=== PATIENT | male | born 1940 | race Caucasian/White ===

== ENCOUNTER 2017-09-10 19:09 | Inpatient (IN) | payer OTHER, MEDICARE ==
[~2017-09-10] VITALS: Ht 177.8 cm; Wt 68.9 kg
--- NOTE | ~2017-09-10 | EKG ---
[address] [place] [address] ELECTROCARDIOGRAM REPORT Name: CHANCE WRIGHT Room #: 461-P ADM IN M.R.#: [id number] Admission: 09/10/17 Attend Phys: Gina Ruiz Discharge: Date of : 42 Report #: [id number] THIS REPORT FOR: //name// [facility] ED Test Date: 2017-09-10 Test Time: 19:21:46 Pat Name: CHANCE WRIGHT Department: Room: Gender: M Supervisor Wet Pour: DONI : 1940 Requested By: Melissa Portillo Order Number: [id number] MD: Leonel Jackson Measurements Intervals [place] Rate: 68 P: 72 AR: 179 QRS: 11 QRSD: 86 T: 52 QT: 380 QTc: 405 Interpretive Statements Sinus rhythm RSR' in V1 or V2, right VCD or RVH Borderline ST elevation, anterior leads No previous ECG available for comparison Electronically Signed On 09-11-2017 14:30:18 CDT by Leonel Jackson [email or web address] <ELECTRONICALLY SIGNED> By: Leonel Jackson MD 09/11/17 1430 20 20 Leonel Jackson MD /SHERRIE
[2017-09-10 19:12] VITALS: BP 139/78
[2017-09-10 19:38] LABS: ABSOLUTE NEUTROPHILS 3.9 thou/uL (1.4-8.2); HEMATOCRIT 40.1 % (42.0-52.0); HEMOGLOBIN 13.6 gm/dL (14.0-18.0); LYMPHOCYTES 32.3 % (24.0-44.0); MCH 31.7 pg (26.0-34.0); MCHC 33.9 g/dL (28.0-37.0); MCV 93.3 fL (80.0-100.0); MONOCYTES 10.4 % (1.0-8.0); PLATELET COUNT 187 thou/uL (150-400); POLYS 55.3 % (36.0-66.0); WBC 7.1 thou/uL (4.0-11.0)
[2017-09-10 19:42] LABS: ANION GAP 10 mmol/L (7-16); BUN 19 mg/dL (7-18); CALCIUM 9.3 mg/dL (8.5-10.1); CHLORIDE 105 mmol/L (98-107); CO2 23 mmol/L (21-32); CREATININE 1.3 mg/dL (0.7-1.3); GLUCOSE 124 mg/dL (74-106); POTASSIUM 3.2 mmol/L (3.5-5.1); SODIUM 138 mmol/L (136-145)
[2017-09-10 19:51] LABS: ALBUMIN 3.6 g/dL (3.4-5.0); MAGNESIUM 1.8 mg/dL (1.8-2.4); SGOT 19 U/L (15-37); SGPT 22 U/L (30-65); TOTAL BILIRUBIN 0.6 mg/dL (<0.1-1.0); TOTAL PROTEIN 6.7 g/dL (6.4-8.2); TROPONIN-I < 0.04 ng/mL (<0.06)
[2017-09-10 20:50] LABS: URINE BILIRUBIN NEGATIVE (Negative); URINE BLOOD NEGATIVE (Negative); URINE CLARITY CLEAR; URINE COLOR YELLOW; URINE GLUCOSE-RANDOM* NEGATIVE (Negative); URINE KETONES NEGATIVE (Negative); URINE LEUKOCYTES-REFLEX NEGATIVE (Negative); URINE NITRITE-REFLEX NEGATIVE (Negative); URINE PROTEIN (DIPSTICK) NEGATIVE (Negative); URINE UROBILINOGEN 0.2 E.U./dl (0.2-1.0)
[2017-09-10 21:24] LABS: AMP/METHAMP Negative (Negative); BARBITURATES Negative (Negative); BENZODIAZEPINES Negative (Negative); COCAINE Negative (Negative); METHADONE Negative (Negative); OPIATES Negative (Negative); PCP Negative (Negative)
[2017-09-10 22:28] VITALS: BP 167/96
[2017-09-10 23:28] VITALS: BP 160/88
[2017-09-10 23:30] VITALS: BP 178/94
[2017-09-11 04:41] VITALS: BP 165/100
[2017-09-11 08:05] VITALS: BP 159/81
[2017-09-11] MEDS ORDERED: KEFLEX500 M1 PO (12:53)
[2017-09-11] MEDS ORDERED: ASPIR 8181 MG PO (16:25)
[2017-09-11 16:30] VITALS: BP 159/81
== END 2017-09-11 17:00 | disposition home or self-care (01) | DRG 72 ==
LOC: ER 19:09 → EROBS 20:49 → 4W 20:49 → ENTRNSPT 09-11 16:49 → 4W 09-11 17:00
PROVIDERS: Nurse Practitioner Family
DX: G93.40 Encephalopathy, unspecified (principal); J44.9 Chronic obstructive pulmonary disease, unspecified; E87.6 Hypokalemia; F03.90 Unspecified dementia, unspecified severity, without behavioral disturbance, psychotic disturbance, mood disturbance, and anxiety; L60.0 Ingrowing nail; Z88.6 Allergy status to analgesic agent; Z88.8 Allergy status to other drugs, medicaments and biological substances; Z91.040 Latex allergy status